=== PATIENT | female | born 1975 | race Caucasian/White ===

== ENCOUNTER → 2016-12-10 | Outpatient (CLI) | payer OTHER ==
[~2016-12-10] MED LIST: CETIRIZINE HCL10 MG PO; GABAPENTIN300 MG PO; HYDROXYZINE HCL25 M1 PO; IBUPROFEN800 MG PO; MOTRIN PO; NO MEDICATIONS; PRILOSEC20 MG PO; VICODIN PO; VRAYLAR6 MG PO; ZOFRANODT SL
--- NOTE | ~2016-12-10 | CR181 ---
[facility]. [facility] A Service of [facility] & [facility] RADIOLOGY TEXT RESULTS PATIENT: MAMIE HERNANDEZ LOCATION: [facility] : 77 UNIT #: [id number] AGE: [address]: KATE ALVAREZ APRN SEX: F ORDER DR: [id number] [address] [address] [id number] O MR#: [id number] Acc #: [id number] NAME: MAMIE HERNANDEZ : 1975 SEX: F STUDY DATE/TIME: 12/10/2016 14:33 UNIT: [facility] ROOM: STUDY DESCRIPTION: CR Lumbar Spine 2 or 3 Views Attending Physician: Kate Alvarez Aprn Referring Physician: Kate Alvarez Aprn Ordering Physician: Kate Alvarez Aprn Primary Care Physician: aCmron Sarah M.D. MEDICAL IMAGING REPORT This report is preliminary unless electronic signature is present. EXAM Lumbar spine. INDICATIONS Mid low back pain, 2 year duration. FINDINGS Three views of the lumbar spine compared to 10/10/2015. Vertebral body height and alignment is within normal limits. There is no acute fracture or subluxation. Vertebral body height and alignment is within normal limits. The sacroiliac joints are normal. IMPRESSION No acute findings. Dictated by... Edmar Larios M.D. THIS IS AN ELECTRONICALLY VERIFIED REPORT Edmar Larios M.D. at 12/11/2016 8:01 PM ELIZABETH/cr TD: 12/11/2016 16:02 JOB #: [id number] MEDICAL IMAGING REPORT Page 1 of 1
== END | disposition home or self-care (01) ==
LOC: SRAD 14:25
DX: M54.9 Dorsalgia, unspecified (principal)
CPT/HCPCS: 72100